=== PATIENT | male | born 1945 | race Caucasian/White ===

== ENCOUNTER 2017-08-02 00:07 | Inpatient (IN) | payer OTHER ==
[~2017-08-02] VITALS: Ht 160 cm; Wt 82.1 kg
[~2017-08-02 00:07] MED LIST: CEFADROXIL500 MG PO; CRESTOR10 MG PO; DELTASONE20 MG; ECOTRIN81 MG PO; HYZAAR 50/12.51 TAB PO; INTEGRA PLUS C1 EACH PO; KAYEXALATE15 GM/60 M PO; LIPITOR20 MG; PERCOCET 5/321 UDTAB PO; PROCARDIA90 MG/BLIS PO; TAMS0.4C PO; TRELSTAR11.25 MG/2 IM; XARELTO10 MG PO
[2017-08-02] MEDS ORDERED: ASA81 MG (00:22)
== END 2017-08-17 21:50 | disposition expired | DRG 682 ==
LOC: ER 00:07 → SEC-K 11:01 → MEDI 08-04 01:53 → MEDJ 08-04 01:53 → ICU 08-06 20:50
PROC: BW21Y0Z Computerized Tomography (CT Scan) of Abdomen and Pelvis using Other Contrast, Unenhanced and Enhanced (ICD-10-PCS; 2017-08-02)
PROC: 5A1955Z Respiratory Ventilation, Greater than 96 Consecutive Hours (ICD-10-PCS; principal; 2017-08-06)
PROC: 0BH17EZ Insertion of Endotracheal Airway into Trachea, Via Natural or Artificial Opening (ICD-10-PCS; 2017-08-06)
PROC: 4A033R1 Measurement of Arterial Saturation, Peripheral, Percutaneous Approach (ICD-10-PCS; 2017-08-06)
PROC: 4A12X4Z Monitoring of Cardiac Electrical Activity, External Approach (ICD-10-PCS; 2017-08-06)
PROC: 8E0ZXY6 Isolation (ICD-10-PCS; 2017-08-06)
PROC: 4A00X4Z Measurement of Central Nervous Electrical Activity, External Approach (ICD-10-PCS; 2017-08-07)
PROC: B246ZZZ Ultrasonography of Right and Left Heart (ICD-10-PCS; 2017-08-07)
PROC: 02HV33Z Insertion of Infusion Device into Superior Vena Cava, Percutaneous Approach (ICD-10-PCS; 2017-08-08)
DX: N17.8 Other acute kidney failure (principal); J96.01 Acute respiratory failure with hypoxia; J18.9 Pneumonia, unspecified organism; A41.9 Sepsis, unspecified organism; R65.21 Severe sepsis with septic shock; K56.690 Other partial intestinal obstruction; G40.89 Other seizures; B37.0 Candidal stomatitis; G93.1 Anoxic brain damage, not elsewhere classified; E87.1 Hypo-osmolality and hyponatremia; N39.0 Urinary tract infection, site not specified; N13.1 Hydronephrosis with ureteral stricture, not elsewhere classified; E86.0 Dehydration; R31.0 Gross hematuria; I10 Essential (primary) hypertension; I25.10 Atherosclerotic heart disease of native coronary artery without angina pectoris; C61 Malignant neoplasm of prostate; E87.5 Hyperkalemia; I46.8 Cardiac arrest due to other underlying condition; I48.0 Paroxysmal atrial fibrillation; R00.0 Tachycardia, unspecified; L89.150 Pressure ulcer of sacral region, unstageable